=== PATIENT | female | born 1990 | race Caucasian/White ===

== ENCOUNTER 2024-11-17 20:59 | Emergency (ER) | payer BC, SELFPAY ==
[2024-11-17] VITALS (98 sets, daily range): BP systolic 165–207; BP diastolic 104–135; PULSE 72–97; RESP 11–23; TEMP 36.6–37; O2SAT 97–100
--- NOTE | 2024-11-17 21:00 | RT.EKG_ITS ---
APPROVED REPORT Exam: Resting ECG Reason for Exam: chest pain Patient Location: E HR:83 bpm ECG Measurements Heart Rate 83 AXIS RI 162 P 105 QRSd 104 QRS 128 QT 380 T 118 QTc 447 Conclusion sinus [address] changes lvh no stemi
[2024-11-17 21:44] LABS: Bilirubin Negative (Negative); Blood Negative (Negative); Clarity Clear (Clear); Glucose Negative (Negative); Ketones Negative (Negative); Leukocyte Esterase Negative (Negative); Nitrite Negative (Negative); Specific Gravity <= 1.005 (1.005-1.025); Urobilinogen 0.2 mg/dL (Up to 0.2)
[2024-11-17 21:46] LABS: Abs Immature Grans 0.01 10^3/uL (0.0-0.06); Absolute Basophil Count 0.02 10^3/uL (0.0-0.2); Absolute Eosinophil Count 0.05 10^3/uL (0.0-0.7); Absolute Lymphocyte Count 1.76 10^3/uL (1.2-3.4); Absolute Monocyte Count 0.52 10^3/uL (0.1-0.8); Absolute Neutrophil Count 3.22 10^3/uL (1.2-6.7); Basophils % 0.4 %; Eosinophils % 0.9 %; HCT 42.4 % (36.0-46.0); HGB 14.1 g/dL (11.2-15.7); Immature Grans % 0.2 %; Lymphocytes % 31.5 %; MCHC 33.3 % (32.0-36.0); MCV 90 fL (80-95); MPV 11.1 fL (8.0-11.0); Monocytes % 9.3 %; Neutrophils % 57.7 %; Platelet Count 222 10^3/uL (130-400); RDW 13.2 % (11.7-14.6); RDW-SD 42.9 fL; WBC 5.58 10^3/uL (4.4-10.8)
[2024-11-17] MEDS: LORazepam 20 MG/10 ML VIAL IVP ×2 (22:02→23:04)
[2024-11-17 22:03] LABS: *AMPHETAMINES SCREEN URINE Negative (Negative); *BARBITURATES SCREEN URINE Negative (Negative); *BENZODIAZEPINES SCREEN URINE Negative (Negative); Cannabinoids THC Negative (Negative); Cocaine Screen,Urine Negative (Negative); METHADONE URINE SCREEN Negative (Negative); OPIATES URINE SCREEN Negative (Negative)
[2024-11-17 22:05] LABS: Tricyclic Antidepressants Negative (Negative)
[2024-11-17 22:10] LABS: ALT 18 U/L (14-59); AST 12 U/L (15-37); Albumin 4.4 g/dL (3.4-5.0); Alkaline Phosphatase 70 U/L (46-116); Anion Gap 8.5 mmol/L (3-11); BUN 11 mg/dL (7-18); Bilirubin, Total 0.5 mg/dL (0.2-1.0); CO2 27.5 mmol/L (21.0-32.0); CREATININE 0.8 mg/dL (0.55-1.02); Calcium 9.6 mg/dL (8.5-10.1); Chloride 102 mmol/L (98-107); D-Dimer 322 ng/mlFEU (<500); Estimated GFR 98.48 (mL/min/1.73m2); Glucose 74 mg/dL (74-106); Potassium 3.6 mmol/L (3.5-5.1); Sodium 138 mmol/L (136-145); Total Protein 8.5 g/dL (6.4-8.2); Troponin I < 4 ng/L (<or=51)
[2024-11-17 22:26] LABS: FREE T4 0.82 ng/dL (0.76-1.46)
--- NOTE | 2024-11-17 22:46 | DI.RAD_ITS ---
Exam(s) XR CHEST 2V PA LATERAL EXAM: XR CHEST 2V PA LATERAL CLINICAL HISTORY: chest pain. TECHNIQUE: 2D digital imaging was performed. COMPARISON: No exams were available for comparison FINDINGS: 2 views: Heart size is normal. The mediastinum is not widened. Lungs are clear. No infiltrates nor pleural effusions. IMPRESSION: No acute pulmonary findings. DATA REPOSITORY: RADIATION DOSE DELIVERED:
[2024-11-17] MEDS: Lisinopril 10 MG TAB PO (23:06)
--- NOTE | 2024-11-17 23:07 | DI.VRAD_ITS ---
PROCEDURE INFORMATION: Exam: XR Chest Exam date and time: 11/17/2024 10:45 PM Age: 34 years old Clinical indication: Chest pressure; Chest pain TECHNIQUE: Imaging protocol: Radiologic exam of the chest. Views: 2 views. COMPARISON: No relevant prior studies available. FINDINGS: Lungs: No alveolar infiltrate. Pleural spaces: No pleural fluid collection. No pneumothorax. Heart/Mediastinum: Normal heart size. Bones/joints: Unremarkable for patient age. IMPRESSION: No active pulmonary disease. Dictated and Authenticated by: Terrence Sánchez MD. Orderin Sahara Osorio MD
--- NOTE | 2024-11-17 23:34 | ED.GENADUL_ITS ---
Discharge Plan Disposition Patient Disposition: Home Condition: Stable Discharge Details Clinical Impression: Elevated blood pressure reading Primary Care Provider: None,None ED Provider: Jo Shoemaker Home Meds and New Rx's Prescriptions: New lisinopril 10 mg tablet 10 mg PO DAILY Qty: 14 0RF Continued fluoxetine [Prozac] 40 mg capsule 60 mg PO DAILY sumatriptan succinate [Imitrex] 50 mg tablet 50 mg PO Q2H PRN Rx Instructions: do not exceed 4 doses per 24 hrs Discharge Instructions Instructions: Heart Healthy Diet, Lowering Your Risk of High Blood Pressure Additional Instructions: Please cut back on your alcohol consumption as this can cause your diastolic (lower blood pressure number) to be elevated this can be reversed quickly with abstinence I recommend cutting down by one drink daily so you do not develop alcohol withdrawal I recommend having your blood pressure rechecked next week I've placed you on the list for urgent follow-up next week please take the lisinopril daily and check your blood pressure once a day or alternating days at different times HPI General Date/Time Provider Initiated Documentation: 11/17/24 21:00 . HPI Narrative: 34-year-old female with anxiety, depression, and migraines presents with lightheadedness, tremulousness, and resolved chest pain from this morning. Reports feeling off and has been monitoring her blood pressure daily due to elevated readings noticed by her [id number]. Experienced chest pain upon awakening, leading to increased anxiety and multiple blood pressure checks. 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 denies shortness of breath, current chest pain, or . Consumes approximately 4 Coronas daily, reduced intake in the past month. Relocated from [place] a year ago, has not established care with a PCP. Related Data Home Medications ?Medication ?Instructions ?Recorded ?Confirmed fluoxetine 40 mg capsule (Prozac) 60 mg PO DAILY 11/17/24 11/17/24 lisinopril 10 mg tablet 10 mg PO DAILY #14 tabs 11/17/24 sumatriptan succinate 50 mg tablet 50 mg PO Q2H PRN 11/17/24 11/17/24 (Imitrex) Previous Rx's ?Medication ?Instructions ?Recorded lisinopril 10 mg tablet 10 mg PO DAILY #14 tabs 11/17/24 Allergies Allergy/AdvReac Type Severity Reaction Status Date / Time No Known Drug Allergies Allergy Mild Other (See Verified 11/17/24 21:11 Comment) General Stated Complaint: Dizzy/Sync OLIVIA: 3 Exam Narrative Exam Narrative: General Appearance: Alert, oriented, and cooperative. Vital signs: Within normal limits. HEENT: Pupils equal, round, reactive to light and accommodation. Respiratory: Lungs clear to auscultation. Cardiovascular: Regular cardiac rate and rhythm, no murmur. Extremities: No peripheral edema, distal pulses intact. Neurological: Nonfocal neurological exam, cranial nerves II-XII intact. Psychiatric: Ambulatory with steady gait, follows commands. Course Vital Signs Vital signs: Vital Signs Temperature 36.6 C 11/17/24 21:02 Pulse 86 11/17/24 21:02 Respiratory Rate 18 11/17/24 21:02 Blood Pressure 199/135 H 11/17/24 21:02 Pulse Oximetry 99 11/17/24 21:02 Temperature 36.6 C 11/17/24 21:02 Temperature Source Oral 11/17/24 21:02 Pulse 81 11/17/24 23:16 Respiratory Rate 18 11/17/24 23:16 Respiratory Effort Normal, Non-Labored 11/17/24 21:22 Respiratory Depth Normal 11/17/24 21:22 Respiratory Pattern Normal 11/17/24 21:22 Blood Pressure 171/127 H 11/17/24 23:16 Blood Pressure Mean 142 11/17/24 23:16 Blood Pressure Position Sitting 11/17/24 21:02 Pulse Oximetry 98 11/17/24 23:16 Oxygen Delivery Method Room Air 11/17/24 21:02 Oxygen Flow Rate 0 11/17/24 21:02 Lab/Test Results Lab/Test Results: Laboratory Tests Range/Units 11/17/24 11/17/24 11/17/24 21:15 21:35 22:09 WBC (4.4-10.8) 10^3/uL 5.58 RBC (3.93-5.22) 10^6/uL 4.70 Hgb (11.2-15.7) g/dL 14.1 Hct (36.0-46.0) % 42.4 MCV (80-95) fL 90 MCH (27.0-33.0) pg 30.0 MCHC (32.0-36.0) % 33.3 RDW (11.7-14.6) % 13.2 Plt Count (130-400) 10^3/uL 222 MPV (8.0-11.0) fL 11.1 H Immature Gran % % 0.2 Neutrophils % % 57.7 Lymphocytes % % 31.5 Monocytes % % 9.3 Eosinophils % % 0.9 Basophils % % 0.4 Nucleated RBC % (0.0-0.3) % 0.0 Absolute Neutrophils (1.2-6.7) 10^3/uL 3.22 Absolute Lymphocytes (1.2-3.4) 10^3/uL 1.76 Absolute Monocytes (0.1-0.8) 10^3/uL 0.52 Absolute Eosinophils (0.0-0.7) 10^3/uL 0.05 Absolute Basophils (0.0-0.2) 10^3/uL 0.02 D-Dimer (<500) ng/mlFEU 322 Sodium (136-145) mmol/L 138 Potassium (3.5-5.1) mmol/L 3.6 Chloride (98-107) mmol/L 102 Carbon Dioxide (21.0-32.0) mmol/L 27.5 Anion Gap (3-11) mmol/L 8.5 BUN (7-18) mg/dL 11 Creatinine (0.55-1.02) mg/dL 0.8 Est GFR (CKD-EPI 2020) (mL/min/1.73m2) 98.48 Glucose (74-106) mg/dL 74 Calcium (8.5-10.1) mg/dL 9.6 Total Bilirubin (0.2-1.0) mg/dL 0.5 AST (15-37) U/L 12 L ALT (14-59) U/L 18 Alkaline Phosphatase (46-116) U/L 70 Troponin I (<or=51) ng/L < 4 Cancelled Total Protein (6.4-8.2) g/dL 8.5 H Albumin (3.4-5.0) g/dL 4.4 TSH (0.36-3.74) uIU/mL 4.50 H Free T4 (0.76-1.46) ng/dL 0.82 Urine Color (Yellow) Yellow Urine Clarity (Clear) Clear Urine pH (5-8) 6.0 Ur Specific [place] (1.005-1.025) <= 1.005 Urine Protein (Neg-Trace) mg/dL Negative Urine Ketones (Negative) mg/dL Negative Urine Blood (Negative) Negative Urine Nitrite (Negative) Negative Urine Bilirubin (Negative) Negative Urine Urobilinogen (Up to 0.2) mg/dL 0.2 Ur Leukocyte Esterase (Negative) Negative Urine Glucose (Negative) mg/dL Negative Urine Opiates Screen (Negative) Negative Urine Methadone Screen (Negative) Negative Ur Barbiturates Screen (Negative) Negative Ur Tricyclics Screen (Negative) Negative Ur Amphetamines Screen (Negative) Negative U Benzodiazepines Scrn (Negative) Negative Urine Cocaine Screen (Negative) Negative Ur THC Screen (Negative) Negative POC- Test(urine) Negative Medical Decision Making Troponin <4. D-dimer 322, within normal limits. Chest x-ray performed. EKG shows hypertrophy, likely due to longstanding hypertension. Initial Assessment: 34-year-old female with history of anxiety, depression, and migraine headaches presents with lightheadedness, tremulousness, and resolved chest pain. Denies current chest pain, shortness of breath, and . Reports high blood pressure readings and daily alcohol consumption. Differential Diagnosis: - Hypertension: Blood pressure readings consistent with past week, no acute changes. Symptoms may be anxiety-related. Consumed 2 beers today, half usual intake. No evidence of end-organ damage, immediate reduction not required. ED Course: - Diagnostic labs, EKG, troponin, D-dimer, chest x-ray ordered. - Troponin <4 with onset of symptoms earlier this morning. - D-dimer 322 within normal limits. - EKG shows hypertrophy, likely due to longstanding hypertension. -discussed counseling - Administered 2 mg Ativan, BP 185/104 post-administration. - Initiate Lisinopril 10 mg. Final Assessment: Patient's symptoms likely related to anxiety and alcohol consumption. Diagnostic workup shows no acute changes or end-organ damage. Treatment initiated with Ativan and Lisinopril. Clinical Impression: - Hypertension Disposition: - Needs to establish care with PCP urgently. - Advised to reduce alcohol consumption by one drink daily. Patient Education: Discussed reducing alcohol consumption and reviewed return precautions. MDM Components Evaluation: - Number of Differential Diagnoses or Management Options: Hypertension - Amount and Complexity of Data Reviewed: Labs, EKG, troponin, D-dimer, chest x- ray - Risk of Complication and Morbidity or Mortality: No evidence of end-organ damage, immediate reduction of blood pressure not required. Quality:[facility] Health Related Social Needs: No Data to Display [facility] All Active Problems (Updated 11/17/24 @ 22:47 by DARELL Norwood) Elevated blood pressure reading (Acute) Social History Smoking/Tobacco Use Status: Never Smoking risk assessment performed?: Yes Drug use: Rarely Substance use type: marijuana PAWSS Have you Been Recently Intoxicated or Drunk Within the Last 30 days?: Yes Have you Ever Experienced Previous Episodes of Alcohol Withdrawal?: No Have you ever Experienced Withdrawal Seizures?: No Have you ever Experienced Delirium Tremens(DT)s?: No Have you ever undergone Alcohol Rehabilitation Treatment (i.e, inpt ot outpatient treatment programs)?: No Have you ever Experienced Blackouts?: Yes Have you ever Combined Alcohol with other Downers within the last 90 days?: No Have you ever Combined Alcohol with any other Substance of Abuse during the last 90 days?: No Positive Blood Alcohol level on Presentation? [PCS.BAL]: Yes Result: 3
== END 2024-11-17 23:50 | disposition home or self-care (01) ==
PROVIDERS: Emergency Provider Physician Assistant
DX: F10.90 Alcohol use, unspecified, uncomplicated; R42 Dizziness and giddiness; R03.0 Elevated blood-pressure reading, without diagnosis of hypertension
CPT/HCPCS: 99284 ×2; 96374; 96376; 81025; 36415; 80053; 80307; 93005; 71046; 81003; 84439; 84443; 84484; 85025; 85379; 93010; J2060

== ENCOUNTER 2024-12-06 14:17 | Outpatient (REF) | payer BC, SELFPAY ==
--- NOTE | 2024-12-06 14:00 | PAPFT_PTH ---
PATIENT: Jessie Rice LOC: [facility] U#:[id number] AGE/SX: 34/F ROOM: RE12/06/[address]: Zamzam Costello NP : 1990 BED: DIS: 12/06/2024 SPEC #: [id number] RECD: 12/06/24 17:42 STATUS: MELISA REQ #: [id number] JUAN: 12/06/24 14:[address]: Trang GUZMÁN,Zamzam DEPT: [facility] Cytology RECD BY: Jo Porter ENTERED: 12/06/24 17:43 SP TYPE: PAPFT OTHR DR: None Tissues: 1 - CX/ENDOCX FOR PAP SMEARS Procedures: PAP THIN PREP/[facility] Screening HPV DNA PROBE Comments: [id number] (HPV 16 & 18/45)
== END 2024-12-06 14:18 | disposition home or self-care (01) ==
LOC: LBN 14:17
PROVIDERS: Visit Provider Nurse Practitioner Women's Health
DX: Z12.4 Encounter for screening for malignant neoplasm of cervix (principal)
CPT/HCPCS: 88142; 87624

== ENCOUNTER 2025-03-15 14:10 | Outpatient (REF) | payer BC, SELFPAY ==
[2025-03-15 16:46] LABS: TSH 2.27 uIU/mL (0.36-3.74)
[2025-03-15 22:09] LABS: T3, Total 125 ng/dL (97-169)
== END 2025-03-15 14:11 | disposition home or self-care (01) ==
LOC: NCHCN 14:10
PROVIDERS: PCP Family Medicine; Visit Provider Family Medicine
DX: E03.9 Hypothyroidism, unspecified (principal)
CPT/HCPCS: 84439; 84443; 84480